=== PATIENT | male | born 1940 | race Caucasian/White ===

== ENCOUNTER → 2018-11-01 | Outpatient (CLI) | payer MEDICARE, BC ==
[~2018-11-01] MED LIST: AFRIN 15 ML15 ML NS; ASPIRIN E.C. 8181 MG PO; BACTROBAN 22GM22 GM NAS; BYSTOLIC5 MG PO; CHOLESTEROL MA600 MG PO; CLARITIN 1010 MG/TAB PO; COLACE 100100 MG/CAP PO; CORDARONE200 MG/TAB PO; DEXILANT60 MG PO; FISH OIL REGUL300 MG PO; KONSYL0.52 GM PO; LEVAQUIN 750MG750 M1 PO; LOPRESSOR 550 MG/TAB PO; LOPRESSOR100 MG PO; MOTRIN 200200 MG/TAB PO; MUCUSRELF400T PO; NASONEX SPRAY17 GM NS; PRADAXA 150MG150 MG PO; SINGULAIR 110 MG/TAB PO; SUDAFED 12HR120 MG PO; SUDAFED30 MG PO; TAMBOCOR 1100 MG/TAB PO; THERAGRAN1 TA1 PO; TYLENOL 325MG325 MG PO; TYLENOL 500MG500 MG PO; ZOCOR 20MG20 MG PO
== END ==
LOC: COL.RAD 08:11
DX: M50.31 Other cervical disc degeneration, high cervical region (principal); M48.061 Spinal stenosis, lumbar region without neurogenic claudication

== ENCOUNTER 2019-01-21 12:45 | Outpatient (RCR) | payer MEDICARE, BC | END 2019-01-21 13:44 | disposition home or self-care (01) | LOC: WSC 12:45 | DX: M54.2 Cervicalgia (principal) ==

== ENCOUNTER → 2020-09-28 | Outpatient (CLI) | payer MEDICARE, BC | LOC: ZLAB.KSTAT 15:58 | DX: U07.1 COVID-19 (principal) ==

== ENCOUNTER 2021-09-06 08:15 | Day surgery (SDC) | payer MEDICARE, BC ==
[~2021-09-06] VITALS: Ht 167.6 cm; Wt 86.6 kg
[2021-09-06] VITALS (8 sets, daily range): BP systolic 119–154; BP diastolic 69–91; PULSE 60–95; TEMP 97.5
[2021-09-06 09:05] LABS: BASO % 0.7 % (0.0-2.0); EOS # 0.2 K/mm3 (0.0-0.7); EOS % 3.5 % (0-4.0); GRAN # 3.4 K/mm3 (1.4-6.5); GRAN % 63.4 % (42.2-75.2); HEMATOCRIT 41.2 % (42.0-52.0); HEMOGLOBIN 13.9 g/dl (13.5-18.0); LYMPH # 1.2 K/mm3 (1.2-3.4); LYMPH % 22.2 % (20.0-51.0); MEAN CELL VOLUME 91 fl (80.0-100.0); MEAN CORPUSCULAR HEMOGLOBIN 31 pg (27.0-31.0); MEAN CORPUSCULAR HGB CONC 34 g/dl (33.0-37.0); MEAN PLATELET VOLUME 11.1 fl (7.4-10.4); MONO # 0.5 K/mm3 (0.1-0.6); PLATELET COUNT 151 K/mm3 (130-400); RED BLOOD COUNT 4.53 M/mm3 (4.20-5.60); REDCELL DISTRIBUTION WIDTH-CV 13.8 % (11.5-14.5)
[2021-09-06 09:12] LABS: INR 1.2 (0.8-3.0); PROTHROMBIN TIME 13.3 SECONDS (9.7-12.8)
[2021-09-06] MEDS ORDERED: ASPIRIN 32325 MG/TAB PO (09:17)
[2021-09-06] MEDS ORDERED: AMINO ACIDS PO (09:19)
[2021-09-06] MEDS ORDERED: BYSTOLIC2.5 MG PO (09:19)
[2021-09-06] MEDS ORDERED: CITRACAL + D CA1 TAB PO (09:20)
[2021-09-06] MEDS ORDERED: LOTRISONE LOTIO30 ML TOP (09:21)
[2021-09-06] MEDS ORDERED: MUCUS RELIEF400 M1 PO (09:23)
[2021-09-06] MEDS ORDERED: TAMBOCOR 1100 MG/TAB PO (09:23)
[2021-09-06] MEDS ORDERED: MOTRIN 200200 MG/TAB PO (09:24)
[2021-09-06] MEDS ORDERED: HYDROCORTISO28.35 GM TOP (09:24)
[2021-09-06] MEDS ORDERED: CLARITIN 1010 MG/TAB PO (09:25)
[2021-09-06] MEDS ORDERED: [UNRECOGNIZED DRUG - OTHER] PO (09:25)
[2021-09-06] MEDS ORDERED: LOTRISONE CREAM15 GM TP (09:25)
[2021-09-06] MEDS ORDERED: MIRALAX PA17 GM/Dose PO (09:27)
[2021-09-06] MEDS ORDERED: EYE DROP ADVANC15 ML OU (09:27)
[2021-09-06] MEDS ORDERED: NASACORT OTC NS (09:28)
[2021-09-06] MEDS ORDERED: CENTRUM SILVER1 TAB PO (09:28)
[2021-09-06] MEDS ORDERED: RAPAFLO8 MG PO (09:29)
[2021-09-06] MEDS ORDERED: ZOCOR 40MG40 MG PO (09:29)
[2021-09-06] MEDS ORDERED: IMITREX100 MG PO (09:30)
[2021-09-06] MEDS ORDERED: ULTRAM 50MG TAB50 MG PO (09:30)
[2021-09-06] MEDS ORDERED: TYLENOL 500MG500 MG PO (09:31)
[2021-09-06] MEDS ORDERED: OMEGA-31 SGL PO (09:33)
[2021-09-06 12:35] LABS: CALCIUM 9.4 mg/dL (8.4-10.2); CREATININE, serum 1.2 mg/dL (0.72-1.25); POTASSIUM 4.4 mmol/L (3.4-5.0)
--- NOTE | 2021-09-06 13:15 | NUR ---
Pt assisted up to restroom. Gait steady. DC instructions reviewed, pt and express understanding. Awaiting final DC packet completion by Dr Birch prior to discharge. Pt sitting up in chair while waiting. INT DC'd with catheter intact. Dressing to incision clean, dry and intact.
[2021-09-06] MEDS ORDERED: CEPHALEXIN500 M1 PO (13:51)
--- NOTE | 2021-09-06 14:15 | NUR ---
Pt assisted out to 's car by wheelchair with personal belongings.
== END 2021-09-06 14:15 | disposition home or self-care (01) ==
LOC: COL.CAR 08:15
PROVIDERS: Internal Medicine Cardiovascular Disease
DX: Z45.010 Encounter for checking and testing of cardiac pacemaker pulse generator [battery] (principal); I48.91 Unspecified atrial fibrillation; I10 Essential (primary) hypertension; E78.00 Pure hypercholesterolemia, unspecified; G47.33 Obstructive sleep apnea (adult) (pediatric); E78.5 Hyperlipidemia, unspecified
CPT/HCPCS: C1785; J0690; J2250; J3010; J7030

== ENCOUNTER 2022-02-14 06:57 | Day surgery (SDC) | payer MEDICARE, BC ==
[~2022-02-14] VITALS: Ht 167.6 cm; Wt 82.1 kg
[~2022-02-14 06:57] MED LIST changes: +AMINO ACIDS PO; +ASPIRIN 32325 MG/TAB PO; +BYSTOLIC2.5 MG PO; +CENTRUM SILVER1 TAB PO; +CEPHALEXIN500 M1 PO; +CITRACAL + D CA1 TAB PO; +EYE DROP ADVANC15 ML OU; +HYDROCORTISO28.35 GM TOP; +IMITREX100 MG PO; +LOTRISONE CREAM15 GM TP; +LOTRISONE LOTIO30 ML TOP; +MIRALAX PA17 GM/Dose PO; +MUCUS RELIEF400 M1 PO; +NASACORT OTC NS; +OMEGA-31 SGL PO; +RAPAFLO8 MG PO; +ULTRAM 50MG TAB50 MG PO; +ZOCOR 40MG40 MG PO; +[UNRECOGNIZED DRUG - OTHER] PO
[2022-02-14] MEDS ORDERED: BYSTOLIC2.5 MG PO (07:20)
[2022-02-14 07:51] VITALS: BP 132/72; PULSE 66; TEMP 97.7
[2022-02-14 09:17] VITALS: BP 129/72; PULSE 67
--- NOTE | 2022-02-14 09:17 | NUR ---
Patient returns to [facility] [address] per cart and transfers from cart to recliner with two person assist. IV fluids infusing #22g right hand. Denies nausea or abdominal pain. Given water to drink. Spouse in room.
[2022-02-14 09:32] VITALS: BP 135/74; PULSE 60
--- NOTE | 2022-02-14 09:32 | NUR ---
Eating muffin and continues to deny nausea or any difficulty swallowing. Dr. Wetzel was in the room and talked with the patient and spouse. All questions answered.
[2022-02-14 09:56] VITALS: BP 131/64; PULSE 60
--- NOTE | 2022-02-14 09:56 | NUR ---
IV discontinued and site is free of redness. Dresses self
--- NOTE | 2022-02-14 10:08 | NUR ---
Patient given dismissal instructions and voices understanding of these. Provided office number for questions and concerns.
--- NOTE | 2022-02-14 10:11 | NUR ---
Patient dismissed to home driven by spouse per private vehicle and taken to the front door per wheelchair and assisted into car by this RN with dismissal instructions in hand.
== END 2022-02-14 10:11 | disposition home or self-care (01) ==
LOC: SDCO 06:57
DX: Z12.11 Encounter for screening for malignant neoplasm of colon (principal); D12.5 Benign neoplasm of sigmoid colon; K64.0 First degree hemorrhoids; G47.33 Obstructive sleep apnea (adult) (pediatric); K22.70 Barrett's esophagus without dysplasia; K44.9 Diaphragmatic hernia without obstruction or gangrene; J30.2 Other seasonal allergic rhinitis; Z99.89 Dependence on other enabling machines and devices; Z85.828 Personal history of other malignant neoplasm of skin
CPT/HCPCS: J2704; J7120